=== PATIENT | female | born 1995 | race African-American/Black ===

== ENCOUNTER 2022-10-20 05:04 | Emergency (ER) | payer MEDICAID, OTHER ==
[~2022-10-20] VITALS: Ht 175.3 cm; Wt 75.0 kg
[2022-10-20 05:22] VITALS: BP 113/83; RESP 18; O2SAT 97
[2022-10-20 05:33] VITALS: PULSE 111
== END 2022-10-20 06:18 | disposition left against medical advice (07) ==
LOC: ER 05:04
DX: R42 Dizziness and giddiness (principal); Z53.21 Procedure and treatment not carried out due to patient leaving prior to being seen by health care provider
CPT/HCPCS: 71045; 93005